=== PATIENT | male | born 1975 | race Caucasian/White ===

== ENCOUNTER 2024-07-17 10:58 | Emergency (ER) | payer MEDICAID ==
[~2024-07-17] VITALS: Ht 167.6 cm; Wt 100.0 kg
[2024-07-17 10:59] VITALS: BP 168/80; PULSE 102; RESP 16; TEMP 36.9; O2SAT 99
[2024-07-17 14:57] LABS: BASOPHILS % 0.2 % (0.0-2.0); EOSINOPHILS % 0.2 % (0.0-5.0); HEMATOCRIT. 44.9 % (42.0-52.0); HEMOGLOBIN. 15.1 g/dL (14.0-18.0); LYMPHOCYTES % 23.7 % (20.0-50.0); MEAN CORPUSCULAR HEMOGLOBIN 30.4 pg (28.0-32.0); MEAN CORPUSCULAR HGB CONC 33.7 g/dL (31.0-37.0); MEAN CORPUSCULAR VOLUME 90.4 fL (80.0-94.0); MEAN PLATELET VOLUME 7.2 fl (7.4-10.4); MONOCYTES % 5.3 % (2.0-8.0); NEUTROPHILS % 70.6 % (40.0-76.0); PLATELET 364 x1000/uL (130-400); RED BLOOD CELL COUNT 4.97 mill/uL (4.7-6.1); RED CELL DISTRIBUTION WIDTH 12.8 % (11.6-14.6)
[2024-07-17 15:00] LABS: CHLORIDE 102 mEq/L (98-107); POTASSIUM 3.6 mEq/L (3.5-5.1); SODIUM 140 mEq/L (136-145)
[2024-07-17 15:01] LABS: CALCIUM 9.3 mg/dL (8.7-10.4); CARBON DIOXIDE 25 mEq/L (21-32)
[2024-07-17 15:06] LABS: CREATININE 0.8 mg/dL (0.6-1.3); GLUCOSE 97 mg/dL (70-105); TROPONIN I HIGH SENSITIVITY 7 ng/L (3.0-53); UREA NITROGEN BLOOD 11 mg/dL (9-23)
[2024-07-17 15:08] LABS: ALANINE AMINOTRANSFERASE 19 IU/L (10-49); ALBUMIN 4.4 g/dL (3.2-4.8); ASPARTATE AMINOTRANSFERASE 21 IU/L (<34)
[2024-07-17 15:09] LABS: PROTEIN TOTAL 7.8 g/dL (6.0-8.3); PROTHROMBIN TIME 10.3 sec (9.6-11.0)
[2024-07-17] MEDS ORDERED: LOSA50TA41 MT (15:34)
[2024-07-17] MEDS ORDERED: KEPP500 MT (15:34)
== END 2024-07-17 15:53 | disposition home or self-care (01) ==
LOC: ER 10:58
DX: R53.1 Weakness (principal); I10 Essential (primary) hypertension; Z86.73 Personal history of transient ischemic attack (TIA), and cerebral infarction without residual deficits; Z79.899 Other long term (current) drug therapy; Z59.02 Unsheltered homelessness
CPT/HCPCS: 36415; 71045; 80053; 83880; 84484; 85025; 99284